=== PATIENT | female | born 1975 | race Caucasian/White ===

== ENCOUNTER 2017-02-27 09:43 | Observation (INO) | payer BC ==
[2017-02-25 10:20] LABS: BASOPHILS # (AUTO) 0.1 (0.0-0.1); BASOPHILS % 1.4 % (0.0-1.0); EOSINOPHILS # (AUTO) 0.1 (0.0-0.4); EOSINOPHILS % 1.9 % (0.0-6.0); HEMATOCRIT 36.2 % (34.2-44.1); HEMOGLOBIN 11.7 g/dL (12.0-16.0); LYMPHOCYTES # (AUTO) 1.4 (1.0-3.2); LYMPHOCYTES % 28.7 % (18.0-39.1); MEAN CORPUSCULAR HEMOGLOBIN 29.2 pg (28-32); MEAN CORPUSCULAR HGB CONC 32.3 g/dL (31-35); MEAN CORPUSCULAR VOLUME 90.3 fL (81-99); MONOCYTES # (AUTO) 0.4 (0.2-0.8); MONOCYTES % 7.2 % (4.4-11.3); NEUTROPHILS # (AUTO) 2.9 (2.1-6.9); NEUTROPHILS % 60.6 % (38.7-80.0); PLATELET COUNT 294 x10e3/uL (140-360); RED BLOOD COUNT 4.01 x10e6/uL (3.6-5.1); RED CELL DISTRIBUTION WIDTH 14.5 % (11.7-14.4)
[2017-02-25 10:22] LABS: BILIRUBIN,URINE NEGATIVE (NEGATIVE); CLARITY,URINE CLEAR (CLEAR); COLOR,URINE YELLOW (YELLOW); KETONES,URINE NEGATIVE (NEGATIVE); LEUKOCYTE ESTERASE ,URINE NEGATIVE (NEGATIVE); NITRITE,URINE NEGATIVE (NEGATIVE); PROTEIN,URINE DIPSTICK NEGATIVE (NEGATIVE); URINE UROBILINOGEN 0.2 mg/dL (0.2 - 1)
[2017-02-25 10:37] LABS: ANION GAP 10.5 mmol/L (8-16); BLOOD UREA NITROGEN 11 mg/dL (7-26); BUN/CREATININE RATIO 13 (6-25); CALCIUM 9.1 mg/dL (8.4-10.2); CARBON DIOXIDE 27 mmol/L (22-29); CHLORIDE 109 mmol/L (98-107); CREATININE, SERUM 0.83 mg/dL (0.57-1.11); EST GLOMERULAR FILTRATION RATE > 60 ML/MIN (60-); GLUCOSE 91 mg/dL (74-118); POTASSIUM 4.5 mmol/L (3.5-5.1); SODIUM 142 mmol/L (136-145)
--- NOTE | 2017-02-25 10:42 | Diagnostic Imaging Report ---
PROCEDURE:CHEST 2 VIEWS TECHNIQUE:PA and lateral chest INDICATION:Preoperative evaluation COMPARISON:None. FINDINGS: Lungs are clear and symmetrically inflated. No pleural effusions. Normal heart size, mediastinal contour, and pulmonary vasculature. Intact skeleton. CONCLUSION: Normal chest. Dictated by: Cj Bridges M.D. on 02/25/2017 at 10:50 Electronically approved by: Cj Bridges M.D. on 02/25/2017 at 10:50
[~2017-02-27] VITALS: Ht 170.2 cm; Wt 73.5 kg
[2017-02-27] MEDS ORDERED: CEFAZOLIN SOD 2 GM/D5W 50ML 50 ML IV ONE (09:54)
[2017-02-27] MEDS ORDERED: ESTROGENS CONJUGATED VAGINAL CR 45 GM TUBE PV ONE (10:46)
[2017-02-27] MEDS ORDERED: SODIUM CHLORIDE 0.9% INJ 10 ML VIAL ONE (10:47)
[2017-02-27] MEDS ORDERED: BUPIVACAINE 0.25%/EPI 30ML SDV INJ ONE (10:47)
[2017-02-27] MEDS ORDERED: VASOPRESSIN INJ 20 UNIT/ML VIAL ONE (10:47)
[2017-02-27] MEDS ORDERED: FENTANYL CITRATE/PF 100MCG/2 ML INJ ONE (13:56)
[2017-02-27] MEDS ORDERED: MIDAZOLAM HCL 2 MG/2 ML VIAL ONE (13:56)
[2017-02-27] MEDS ORDERED: PROPOFOL IV EMULSION 10 MG/ML 20 ML VIAL ONE (14:19)
[2017-02-27] MEDS ORDERED: ONDANSETRON HCL INJ 2 MG/ML VIAL ONE (14:19)
[2017-02-27] MEDS ORDERED: ROCURONIUM BROMIDE 10 MG/ML 5ML VIAL ONE (14:19)
[2017-02-27] MEDS ORDERED: SEVOFLURANE INHAL SOLN 250 ML PEN BTL ONE (14:19)
[2017-02-27] MEDS ORDERED: LIDOCAINE HCL 2% LOCAL INJ 5 ML SDV VIAL INJ ONE (14:19)
[2017-02-27] MEDS ORDERED: DEXAMETHASONE SOD PHOS INJ 4 MG/ML VIAL ONE (14:19)
[2017-02-27] MEDS ORDERED: SIMETHICONE 80 MG CHEW PO PRN (15:15)
[2017-02-27] MEDS ORDERED: ACETAMINOPHEN 325 MG TAB PO PRN (15:15)
[2017-02-27] MEDS ORDERED: LORAZEPAM 1 MG TAB PO PRN (15:15)
[2017-02-27] MEDS ORDERED: DIPHENHYDRAMINE HCL 25 MG CAP PO PRN (15:15)
[2017-02-27] MEDS ORDERED: TRAMADOL HCL 50 MG TAB PO PRN (15:15)
[2017-02-27] MEDS ORDERED: ONDANSETRON HCL INJ 2 MG/ML VIAL IV PRN (15:15)
[2017-02-27] MEDS ORDERED: DOCUSATE SODIUM 100 MG CAP PO PRN (15:15)
[2017-02-27] MEDS ORDERED: BISACODYL 10 MG SUPP PR PRN (15:15)
[2017-02-27] MEDS ORDERED: MORPHINE SULFATE 5 MG/ML VIAL ONE (15:29)
[2017-02-27] MEDS ORDERED: MORPHINE SULFATE 5 MG/ML VIAL IM PRN (15:45)
[2017-02-27 16:20] VITALS: BP 140/76
[2017-02-27 16:32] VITALS: BP 140/76
[2017-02-27] MEDS: KETOROLAC TROMETHAMINE 30 MG/ML VIAL IV SCH ×2 (16:48→23:33)
[2017-02-27] MEDS: DEXTROSE 5%/0.225% SOD CHL 1,000 ML IV SCH (16:59)
--- NOTE | 2017-02-27 17:35 | Operative Report ---
DATE OF PROCEDURE: February 27, 2017 PREOPERATIVE DIAGNOSIS 1. Abnormal uterine bleeding. 2. Severe anemia. POSTOPERATIVE DIAGNOSIS 1. Abnormal uterine bleeding. 2. Severe anemia. TITLE OF PROCEDURE: Laparoscopically assisted vaginal hysterectomy, left salpingectomy, right partial salpingectomy. ANESTHESIA: General with Dr. Tinoco and Martha Goel, data assistant. INDICATIONS FOR THE OPERATION: The patient is a 41-year-old 4, para 3-0-1-3, with last menstrual period February 20, 2017, status post tubal ligation in 1998, who presents with heavy menses for 10 years and has become anemic. Hemoglobin was 6. She had been transfused up to 9, and they had gotten her count up a little higher. Endometrial biopsies show benign secretory endometrium, and the bleeding was not responsive to NSAIDs; and, therefore, she has desired to undergo laparoscopically assisted vaginal hysterectomy and bilateral salpingectomy if possible. Her ovaries would remain in situ. She is, therefore, taken to the operating room at this time. FINDINGS AT SURGERY: There was an [id number] uterus. The right tube was stuck to the right ovary and could only partially be removed. The left ovary was within normal limits. The right ovary was otherwise within normal limits, and the left tube was easily removed. PROCEDURE: The patient was taken to the operating room and placed on the table in the supine position. General anesthesia was administered. The patient was then placed in the lithotomy position. The perineum was prepared and draped in the usual sterile manner as was the abdomen. Pelvic exam revealed an [id number] retroverted uterus with no adnexal masses. A Jerez catheter was placed in the bladder for constant drainage. A weighted speculum was placed in the posterior vaginal wall, and then with the aid of a right-angle retractor, the anterior lip of the cervix was grasped with a single-tooth tenaculum. The Joe cannula was inserted into the endocervical canal for manipulation, and we proceeded with laparoscopy. The scouring train operator changed gloves. A small incision was made just inferior to the umbilicus in the midline. The Veress needle was inserted through the incision into the peritoneal cavity. A pneumoperitoneum was created by insufflation of 4 liters of carbon dioxide gas under a filling pressure of 8 to 10 mmHg. The Veress needle was removed, and the trocar was inserted through the incision into the peritoneal cavity. The trocar was removed, and the laparoscope was placed with confirmation that the peritoneal cavity had been entered. A 2nd trocar was placed in the right lower quadrant under direct visualization by laparoscopy, and a 3rd trocar was placed in the left lower quadrant under direct visualization by laparoscopy. At this point, we observed that the right tube was stuck to the ovary, the left tube was free, and at this point the LigaSure instrument was placed around the mesosalpinx on the left. It was fired in successive bites, freeing up the tube completely, and then the round ligament on the left side was divided using the LigaSure instrument, coagulating and cutting, and then the broad ligament was brought down to just above the level of the uterine vessels, coagulating and cutting. Then at this point, attention was turned to the right side. The portion of the tube that was not stuck to the ovary was then clamped on the mesosalpinx and cut and divided, and then the mesosalpinx was taken down in bites using the LigaSure, and then using the LigaSure the round ligament was clamped and cut, and then the broad ligament was clamped and cut using the LigaSure instrument, first coagulating and then cutting. Then once we were free down to the uterine vessels on each side, we proceeded to the vaginal hysterectomy. The legs were put up in high lithotomy. Then the cervix was injected with dilute Pitressin. Then 2 single-toothed tenacula were put on the cervix, and the cervix was circumscribed with a knife, and the endopelvic fascia was then advanced anteriorly, posteriorly and laterally. Following this, we opened the posterior peritoneum under direct visualization and tied the posterior peritoneum to the vaginal cuff for hemostasis. At this point, Zeppelin clamps were placed on the uterosacral ligaments. These were clamped, cut and tied off with an 0 Vicryl suture and tagged for later identification. At this point, we were then able to visualize the anterior peritoneum and opened it, and then the cardinal ligament on each side was clamped, cut and tied off with 0 Vicryl suture, and then the uterine vessels were clamped, cut and tied off with 0 Vicryl suture, clamping from posterior to anterior peritoneum. Then the broad ligament on each side was clamped, cut and tied off with 0 Vicryl suture, taking multiple bites. Once these bites were completed, the uterus was brought down and Sarots were placed over the mesosalpinx on each side. The uterine specimen was cut away, and then the pedicles were tied off with 0 Vicryl suture. There was good hemostasis in evidence, and at this point we inspected. Finding no further bleeding, we proceeded to close. The vaginal cuff was closed with a running stitch of 1 chromic suture, and the uterosacral ligaments were tied to the vaginal cuff for support with a free needle. At this point, there was good hemostasis in evidence in the vagina. We inserted the pneumoperitoneum after the scouring train operator changed gown and gloves, and at this point, looking in, there was no evidence of any bleeding. We irrigated and suctioned, and finding no evidence of bleeding, we proceeded to close. All the air and instruments were removed from the abdomen. The skin incisions were closed with inverted stitches of 4-0 Monocryl suture, thus completing the procedure. There were no complications noted. Estimated blood loss was 100 mL. The patient tolerated the procedure well and was transferred from the operating room to the recovery room in stable condition. The counts were correct x3, and the Jerez catheter again was draining clear urine at the end of the procedure. Job#: [id number] DAVE
[2017-02-27 20:05] VITALS: BP 123/72
[2017-02-27] MEDS: CEFAZOLIN SOD 2 GM in DEXTROSE 5% 50ML 50 ML IV SCH (21:16)
[2017-02-27] MEDS ORDERED: CEFAZOLIN SOD 1 GM/NS 50ML 50 ML IV SCH (22:00)
[2017-02-28 00:29] VITALS: BP 95/55
[2017-02-28] MEDS: DEXTROSE 5%/0.225% SOD CHL 1,000 ML IV SCH ×3 (03:32→11:04)
[2017-02-28 04:43] VITALS: BP 101/52
[2017-02-28] MEDS: KETOROLAC TROMETHAMINE 30 MG/ML VIAL IV SCH (05:30)
[2017-02-28] MEDS: CEFAZOLIN SOD 2 GM in DEXTROSE 5% 50ML 50 ML IV SCH (05:30)
[2017-02-28 06:43] LABS: BASOPHILS % 0.4 % (0.0-1.0); EOSINOPHILS % 0.1 % (0.0-6.0); HEMATOCRIT 31.8 % (34.2-44.1); LYMPHOCYTES # (AUTO) 1.7 (1.0-3.2); LYMPHOCYTES % 15.6 % (18.0-39.1); MEAN CORPUSCULAR HEMOGLOBIN 28.9 pg (28-32); MEAN CORPUSCULAR HGB CONC 31.4 g/dL (31-35); MEAN CORPUSCULAR VOLUME 91.9 fL (81-99); MONOCYTES # (AUTO) 0.9 (0.2-0.8); MONOCYTES % 8.2 % (4.4-11.3); NEUTROPHILS # (AUTO) 7.9 (2.1-6.9); NEUTROPHILS % 74.1 % (38.7-80.0); PLATELET COUNT 264 x10e3/uL (140-360); RED BLOOD COUNT 3.46 x10e6/uL (3.6-5.1); RED CELL DISTRIBUTION WIDTH 14.8 % (11.7-14.4)
[2017-02-28 07:16] LABS: ANION GAP 8.8 mmol/L (8-16); CALCIUM 7.9 mg/dL (8.4-10.2); CREATININE, SERUM 1.08 mg/dL (0.57-1.11); POTASSIUM 3.8 mmol/L (3.5-5.1)
[2017-02-28 07:34] VITALS: BP 111/64
[2017-02-28 11:31] VITALS: BP 119/60
[2017-02-28] MEDS ORDERED: MORPHINE SULFATE 5 MG/ML VIAL IM PRN (11:45)
[2017-02-28] MEDS ORDERED: IBUPROFEN 600 MG TAB PO PRN (11:45)
[2017-02-28] MEDS ORDERED: MOTRIN200 MG PO (13:25)
== END 2017-02-28 14:21 | disposition home or self-care (01) ==
LOC: OR 09:43 → IMCU 15:57
PROVIDERS: ADMIT Obstetrics & Gynecology; ATTEND Obstetrics & Gynecology
DX: D25.9 Leiomyoma of uterus, unspecified (principal); D64.9 Anemia, unspecified; N87.9 Dysplasia of cervix uteri, unspecified; N93.9 Abnormal uterine and vaginal bleeding, unspecified; N71.1 Chronic inflammatory disease of uterus
CPT/HCPCS: 36415 ×2; 58262; 71020; 80048 ×2; 81003; 81025; 84702; 85025 ×2; 86850; 86900; 88307; G0378 ×2; J0690; J1100; J1885 ×2; J2001; J2250; J2270; J2405